=== PATIENT | male | born 1965 | race Hispanic/Latino ===

== ENCOUNTER → 2023-10-17 07:09 | Outpatient (REF) | payer OTHER, SELFPAY ==
[2023-10-17 09:12] LABS: ALT (SGPT) 40 U/L (0-50); AST (SGOT) 37 U/L (17-59); Albumin 4.2 g/dl (3.5-5.0); Alkaline Phosphatase 94 U/L (38-126); Blood Urea Nitrogen 16 mg/dl (9-20); Calcium 8.8 mg/dl (8.4-10.2); Carbon Dioxide 24 mmol/L (22-30); Chloride 106 mmol/L (98-107); Glucose 98 mg/dl (70-99); Sodium 139 mmol/L (135-145); Total Bilirubin 0.8 mg/dl (0.2-1.3); Total Protein 6.5 g/dl (6.3-8.2); eGFR > 60.00
[2023-10-17 09:49] LABS: Glycohemoglobin (HgbA1c) 5.3 % (4.0-5.6)
== END ==
LOC: REG 07:09
PROVIDERS: ATTENDING PHYSICIAN Nurse Practitioner Family
DX: R73.03 Prediabetes (principal)
CPT/HCPCS: 36415; 80053; 83036

== ENCOUNTER → 2024-02-06 07:25 | Outpatient (REF) | payer OTHER, SELFPAY ==
[2024-02-06 09:12] LABS: ALT (SGPT) 54 U/L (0-50); AST (SGOT) 46 U/L (17-59); Albumin 4.6 g/dl (3.5-5.0); Alkaline Phosphatase 78 U/L (38-126); Blood Urea Nitrogen 18 mg/dl (9-20); Calcium 9.1 mg/dl (8.4-10.2); Carbon Dioxide 25 mmol/L (22-30); Chloride 106 mmol/L (98-107); Glucose 107 mg/dl (70-99); HDL Cholesterol 54 mg/dl; LDL Cholesterol, Calculated 101 mg/dl; Potassium 4.3 mmol/L (3.5-5.1); Sodium 142 mmol/L (135-145); Total Bilirubin 1.2 mg/dl (0.2-1.3); Total Cholesterol 170 mg/dl (50-199); Total Protein 6.9 g/dl (6.3-8.2); Triglyceride 75 mg/dl (10-149); Very Low Density Lipoprotein 15 mg/dl (0-30); eGFR > 60.00
== END ==
LOC: CLINIC 07:25
PROVIDERS: ATTENDING PHYSICIAN Nurse Practitioner Adult Health
DX: I10 Essential (primary) hypertension (principal)
CPT/HCPCS: 36415; 80053; 80061

== ENCOUNTER → 2024-11-12 07:04 | Outpatient (REF) | payer OTHER, SELFPAY ==
[2024-11-12 08:24] LABS: Hematocrit 44.4 % (39.0-52.0); Hemoglobin 15.6 g/dL (13.0-18.0); Mean Corp Hgb Conc. 35.1 g/dL (33.0-37.0); Mean Corpuscular Volume 92.5 fL (80.0-94.0); Platelet Count 139 10^3/uL (130-400); Red Cell Dist. Width 12.5 % (11.5-14.5)
[2024-11-12 08:44] LABS: ALT (SGPT) 67 U/L (0-50); AST (SGOT) 44 U/L (17-59); Albumin 4.3 g/dl (3.5-5.0); Alkaline Phosphatase 72 U/L (38-126); Blood Urea Nitrogen 20 mg/dl (9-20); Calcium 8.9 mg/dl (8.4-10.2); Carbon Dioxide 27 mmol/L (22-30); Chloride 108 mmol/L (98-107); Glucose 113 mg/dl (70-99); Potassium 4.2 mmol/L (3.5-5.1); Sodium 141 mmol/L (135-145); Total Protein 6.6 g/dl (6.3-8.2); eGFR > 60.00
[2024-11-12 12:04] LABS: Glycohemoglobin (HgbA1c) 5.3 % (4.0-5.6)
== END ==
LOC: CLINIC 07:04
PROVIDERS: ATTENDING PHYSICIAN Nurse Practitioner Adult Health
DX: I10 Essential (primary) hypertension (principal); R74.8 Abnormal levels of other serum enzymes; R73.03 Prediabetes
CPT/HCPCS: 36415; 80053; 83036; 84443; 85027